=== PATIENT | male | born 1985 | race African-American/Black ===

== ENCOUNTER 2017-04-11 14:08 | Emergency (ER) | payer OTHER ==
[2017-04-11] MEDS: IBUPROFEN 800 MG TAB PO (15:06)
== END 2017-04-11 15:51 | disposition home or self-care (01) ==
LOC: M ED 14:08
DX: S90.02XA Contusion of left ankle, initial encounter (principal); W50.0XXA Accidental hit or strike by another person, initial encounter; Y92.149 Unspecified place in prison as the place of occurrence of the external cause; Y93.9 Activity, unspecified; Y99.0 Civilian activity done for income or pay
CPT/HCPCS: 73610